=== PATIENT | female | born 1990 | race African-American/Black ===

== ENCOUNTER 2022-06-06 18:00 | Inpatient (IN) | payer OTHER ==
[2022-06-06] MEDS ORDERED: Promethazine HCl 25 MG/ML VIAL IM PRN (18:56)
[2022-06-06] MEDS ORDERED: Diphenoxylate HCl/Atropine Tablet PO PRN (18:56)
[2022-06-06] MEDS ORDERED: Lidocaine 1% (PF) 30 ML VIAL SC PRN (18:56)
[2022-06-06] MEDS ORDERED: NS w/ Oxytocin 30 units 500 ML IV SCH ×3 (18:56)
[2022-06-06] MEDS ORDERED: Tranexamic Acid 1,000 MG/10 ML VIAL IVP PRN (18:56)
[2022-06-06] MEDS ORDERED: hydrALAZINE 20 MG/ML VIAL SLOW IVP PRN (18:56)
[2022-06-06] MEDS ORDERED: Methylergonovine 0.2 MG/ML VIAL IM PRN (18:56)
[2022-06-06] MEDS ORDERED: Ondansetron PF 4 MG/2 ML Vial IVP PRN (18:56)
[2022-06-06] MEDS ORDERED: Misoprostol 200 MCG TAB PR PRN (18:56)
[2022-06-06] MEDS ORDERED: Carboprost 250 MCG/ML AMP IM PRN (18:56)
[2022-06-06] MEDS ORDERED: HYDROcodone/Acetaminophen 5/325 mg Tablet PO PRN (18:56)
[2022-06-06] MEDS ORDERED: Ibuprofen 800 MG TAB PO PRN (18:56)
[2022-06-06] MEDS ORDERED: Acetaminophen 500 MG TAB PO PRN (18:56)
[2022-06-06 20:15] VITALS: BMI 29.4
[2022-06-06] MEDS ORDERED: Penicillin G Potassium 5 MILL.UNITS in Sodium Chloride 0.9% 100 ML IVPB SCH (20:30)
[2022-06-06 20:53] LABS: Hemoglobin 9.1 g/dL (12.0-15.5); Mean Corpuscular HGB CONC 34.2 g/dL (32.0-36.0); Mean Corpuscular Hemoglobin 29.8 pg (27.0-33.0); Mean Corpuscular Volume 87.2 fl (81.6-98.3); Mean Platelet Volume 11.8 fl (7.4-10.4); Platelet Count 185 10x3/uL (150-450); Red Blood Cell (RBC) Count 3.05 10x6/uL (3.90-5.03); White Blood Cell (WBC) Count 6.3 10x3/uL (3.5-10.5)
[2022-06-06] MEDS: Misoprostol 100 MCG TAB PO SCH (21:06)
[2022-06-07 00:03] LABS: HBSAg Index 0.13 S/CO (0-0.99); Hep B Surf Ag - L&D Non-Reactive S/CO (NonReactive)
[2022-06-07 00:05] LABS: Syphilis Antibody Nonreactive (Nonreactive); Syphilis Antibody Index 0.05 S/CO (<1.00 Non-Reactive)
[2022-06-07] MEDS: Misoprostol 100 MCG TAB PO SCH ×2 (01:22→05:34)
[2022-06-07] MEDS: Fentanyl 100 MCG/2 ML VIAL SLOW IVP PRN ×2 (06:42→11:27)
[2022-06-08] MEDS: Misoprostol 100 MCG TAB VAG SCH (01:14)
[2022-06-08] MEDS: fentaNYL 50 mcg/mL 1 mL Vial SLOW IVP PRN ×3 (08:08→20:38)
[2022-06-08] MEDS: Lactated Ringer's 1,000 ML IV SCH (09:03)
[2022-06-08] MEDS ORDERED: Misoprostol 100 MCG TAB PO SCH ×2 (09:15→16:30)
[2022-06-08] MEDS ORDERED: Fentanyl 2 mcg/Bup 0.1% Cadd 100 ML ONE (21:24)
[2022-06-08] MEDS ORDERED: Lactated Ringer's 500 ML IV PRN (21:59)
[2022-06-08] MEDS ORDERED: ePHEDrine Sulfate 50 MG/10 ML VIAL SLOW IVP PRN (21:59)
[2022-06-08] MEDS ORDERED: Ondansetron PF 4 MG/2 ML Vial IVP PRN (21:59)
[2022-06-08] MEDS ORDERED: Moisturizing Cream (Eucerin) 113 GM JAR TOP PRN (21:59)
[2022-06-08] MEDS ORDERED: diphenhydrAMINE 50 MG/ML VIAL IVP PRN (21:59)
[2022-06-08] MEDS ORDERED: Naloxone HCl 0.4 mg/ml Vial IVP PRN ×2 (21:59)
[2022-06-08] MEDS ORDERED: Promethazine HCl 25 MG/ML VIAL IM PRN (21:59)
[2022-06-08] MEDS ORDERED: Acetaminophen 325 MG TAB PO PRN (21:59)
[2022-06-08] MEDS ORDERED: Communication Order-Pharmacy FS SCH (22:00)
[2022-06-08] MEDS ORDERED: Fentanyl 2 mcg/Bupivacaine 0.1% Cassette 100 ML EPIDURAL SCH (22:00)
[2022-06-09] MEDS ORDERED: Fentanyl 2 mcg/Bup 0.1% Cadd 100 ML ONE (04:15)
[2022-06-09] MEDS ORDERED: CEFAZOLIN 2 GM VIAL ONE (05:32)
[2022-06-09] MEDS ORDERED: Methylergonovine 0.2 MG/ML VIAL ONE (05:32)
[2022-06-09] MEDS ORDERED: Carboprost 250 MCG/ML AMP ONE (05:32)
[2022-06-09] MEDS ORDERED: Tranexamic Acid 1,000 MG/10 ML VIAL ONE (05:32)
[2022-06-09] MEDS ORDERED: Famotidine/PF 20 mg/2ml Vial SLOW IVP PRN (05:48)
[2022-06-09] MEDS ORDERED: Bicitra 30 ML UDCUP PO PRN (05:48)
[2022-06-09] MEDS ORDERED: Azithromycin 500 MG VIAL ONE (05:52)
[2022-06-09] MEDS ORDERED: CEFAZOLIN 2 GM in Sodium Chloride 0.9% 100 ML IVPB SCH (06:00)
[2022-06-09] MEDS ORDERED: Azithromycin 500 MG in Sodium Chloride 0.9% 250 ML 250 ML IVPB SCH (06:00)
[2022-06-09] MEDS ORDERED: diphenhydrAMINE 50 MG/ML VIAL IVP PRN (07:12)
[2022-06-09] MEDS ORDERED: Promethazine HCl 25 MG SUPP PR PRN ×2 (07:12→08:40)
[2022-06-09] MEDS ORDERED: Ondansetron PF 4 MG/2 ML Vial IVP PRN ×2 (07:12→08:40)
[2022-06-09] MEDS ORDERED: Naloxone HCl 0.4 mg/ml Vial IVP PRN ×4 (07:12→08:40)
[2022-06-09] MEDS ORDERED: Naloxone HCl 0.4 mg/ml Vial IV PRN ×2 (07:12→08:40)
[2022-06-09] MEDS ORDERED: Moisturizing Cream (Eucerin) 113 GM JAR TOP PRN ×2 (07:12→08:40)
[2022-06-09] MEDS ORDERED: Ketorolac Tromethamine 30 MG/ML VIAL IVP PRN ×2 (07:12→08:40)
[2022-06-09] MEDS ORDERED: Promethazine HCl 25 MG/ML VIAL IM PRN ×4 (07:12→11:00)
[2022-06-09] MEDS ORDERED: Ondansetron HCl/PF 4 MG/2 ML Vial IVP PRN ×2 (07:12→08:40)
[2022-06-09] MEDS ORDERED: Communication Order-Pharmacy FS SCH ×2 (07:15→08:45)
[2022-06-09] MEDS ORDERED: Fentanyl 100 MCG/2 ML VIAL SLOW IVP PRN (08:40)
[2022-06-09] MEDS ORDERED: Meperidine HCl/PF 25 MG/ML VIAL SLOW IVP PRN (08:40)
[2022-06-09] MEDS ORDERED: fentaNYL 50 mcg/mL 1 mL Vial SLOW IVP PRN (08:40)
[2022-06-09] MEDS ORDERED: Ketorolac Tromethamine 30 MG/ML VIAL IVP SCH (08:45)
[2022-06-09] MEDS ORDERED: fentaNYL 50 mcg/mL 1 mL Vial ONE (08:53)
[2022-06-09] MEDS ORDERED: Simethicone Chewable 80 MG TAB PO PRN (11:00)
[2022-06-09] MEDS ORDERED: Boostrix 0.5 ML (Tdap) VIAL (>/=7 yrs of age) IM ONE (11:00)
[2022-06-09] MEDS ORDERED: hydrALAZINE 20 MG/ML VIAL SLOW IVP PRN (11:00)
[2022-06-09] MEDS ORDERED: Bisacodyl 10 MG SUPP PR PRN (11:00)
[2022-06-09] MEDS ORDERED: Docusate 100 MG CAP PO SCH (11:15)
[2022-06-09] MEDS ORDERED: Ferrous Sulfate 325 MG TAB PO SCH (11:15)
[2022-06-09] MEDS ORDERED: Prenatal Vitamin 1 TAB PO SCH (11:15)
[2022-06-09] MEDS: Ketorolac Tromethamine 30 MG/ML VIAL IVP SCH ×2 (12:40→18:12)
[2022-06-09] MEDS: diphenhydrAMINE 50 MG/ML VIAL IVP PRN ×2 (15:54→22:03)
[2022-06-09] MEDS ORDERED: Bupivacaine/Epinephrine 0.25% 30 ML VIAL ONE (18:26)
[2022-06-09] MEDS ORDERED: Meperidine HCl/PF 25 MG/ML VIAL IM PRN (21:00)
[2022-06-09] MEDS: Ferrous Sulfate 325 MG TAB PO SCH (22:01)
[2022-06-09] MEDS: Docusate 100 MG CAP PO SCH (22:02)
[2022-06-10] MEDS: Ketorolac Tromethamine 30 MG/ML VIAL IVP SCH ×2 (00:21→06:11)
[2022-06-10 03:02] LABS: Hemoglobin 7.1 g/dL (12.0-15.5); Mean Corpuscular HGB CONC 33.8 g/dL (32.0-36.0); Mean Corpuscular Hemoglobin 29.7 pg (27.0-33.0); Mean Corpuscular Volume 87.9 fl (81.6-98.3); Mean Platelet Volume 11.3 fl (7.4-10.4); Platelet Count 142 10x3/uL (150-450); RBC Distribution Width 14.3 % (11.5-14.5); Red Blood Cell (RBC) Count 2.39 10x6/uL (3.90-5.03); White Blood Cell (WBC) Count 8.5 10x3/uL (3.5-10.5)
[2022-06-10] MEDS: diphenhydrAMINE 50 MG/ML VIAL IVP PRN (04:42)
[2022-06-10] MEDS: HYDROcodone/Acetaminophen 5/325 mg Tablet PO PRN ×5 (04:48→22:29)
[2022-06-10] MEDS: Misoprostol 100 MCG TAB VAG SCH (06:56)
[2022-06-10] MEDS: Misoprostol 100 MCG TAB PO SCH (06:56)
[2022-06-10] MEDS: Lactated Ringer's 1,000 ML IV SCH ×3 (06:57→07:20)
[2022-06-10] MEDS: Penicillin G 2.5 MILL.units 2.5 MILL.UNITS in Premix Bag 1 BAG IVPB SCH ×2 (07:17→07:18)
[2022-06-10] MEDS: Prenatal Vitamin 1 TAB PO SCH (09:02)
[2022-06-10] MEDS: Docusate 100 MG CAP PO SCH ×2 (09:02→21:12)
[2022-06-10] MEDS: Ferrous Sulfate 325 MG TAB PO SCH ×2 (09:02→21:12)
[2022-06-10] MEDS: Ibuprofen 800 MG TAB PO SCH ×2 (13:47→21:12)
[2022-06-11] MEDS: Ibuprofen 800 MG TAB PO SCH ×3 (05:22→22:05)
[2022-06-11] MEDS: HYDROcodone/Acetaminophen 5/325 mg Tablet PO PRN ×5 (05:22→23:43)
[2022-06-11] MEDS: Docusate 100 MG CAP PO SCH ×2 (08:13→22:04)
[2022-06-11] MEDS: Prenatal Vitamin 1 TAB PO SCH (08:13)
[2022-06-11] MEDS: Ferrous Sulfate 325 MG TAB PO SCH ×2 (08:13→22:04)
[2022-06-12] MEDS: Ibuprofen 800 MG TAB PO SCH ×2 (05:11→14:10)
[2022-06-12] MEDS: HYDROcodone/Acetaminophen 5/325 mg Tablet PO PRN ×3 (05:14→16:38)
[2022-06-12 07:49] VITALS: BP 139/84; TEMP 98.3
[2022-06-12] MEDS: Ferrous Sulfate 325 MG TAB PO SCH (08:37)
[2022-06-12] MEDS: Prenatal Vitamin 1 TAB PO SCH (08:37)
[2022-06-12] MEDS: Docusate 100 MG CAP PO SCH (08:38)
== END 2022-06-12 19:35 | disposition home or self-care (01) | DRG 788 ==
LOC: CSHLD 18:32 → CSHPP 06-09 10:05
PROVIDERS: ADMIT Family Medicine; ATTEND Family Medicine
PROC: 3E0P7VZ Introduction of Hormone into Female Reproductive, Via Natural or Artificial Opening (ICD-10-PCS; 2022-06-07)
PROC: 0U7C7ZZ Dilation of Cervix, Via Natural or Artificial Opening (ICD-10-PCS; 2022-06-08)
PROC: 3E033VJ Introduction of Other Hormone into Peripheral Vein, Percutaneous Approach (ICD-10-PCS; 2022-06-08)
PROC: 10D00Z1 Extraction of Products of Conception, Low, Open Approach (ICD-10-PCS; principal; 2022-06-09)
DX: O98.72 Human immunodeficiency virus [HIV] disease complicating childbirth (principal); Z3A.39 39 weeks gestation of pregnancy; Z37.0 Single live birth; Z21 Asymptomatic human immunodeficiency virus [HIV] infection status; Z79.899 Other long term (current) drug therapy
CPT/HCPCS: 36415; 51702; 85027; 86780; 86850; 86900; 86901; 87340; J1200; J1885; J2590; J3010; J7120

== ENCOUNTER 2024-02-11 22:46 | Day surgery (SDC) | payer MEDICAID ==
[2024-02-11 23:16] VITALS: BMI 27.6
[2024-02-11] MEDS: Lactated Ringer's 1,000 ML IV SCH (23:28)
[2024-02-11] MEDS ORDERED: hydrALAZINE 20 MG/ML VIAL SLOW IVP PRN (23:29)
[2024-02-12 00:58] LABS: Hematocrit 27.4 % (34.9-44.5); Hemoglobin 9.7 g/dL (12.0-15.5); Mean Corpuscular HGB CONC 35.4 g/dL (32.0-36.0); Mean Corpuscular Hemoglobin 32.2 pg (27.0-33.0); Mean Platelet Volume 11.6 fL (7.4-10.4); Platelet Count 179 10x3/uL (150-450); RBC Distribution Width 12.7 % (11.5-14.5); Red Blood Cell (RBC) Count 3.01 10x6/uL (3.90-5.03)
[2024-02-12] MEDS: Morphine 4 MG/ML VIAL SLOW IVP SCH (02:24)
[2024-02-12] MEDS: Lactated Ringer's 1,000 ML IV SCH (02:26)
== END 2024-02-12 03:39 | disposition home or self-care (01) ==
LOC: CSHLD/OP 22:46
PROVIDERS: ATTEND Family Medicine
DX: O9A.213 Injury, poisoning and certain other consequences of external causes complicating pregnancy, third trimester (principal); M54.9 Dorsalgia, unspecified; O47.03 False labor before 37 completed weeks of gestation, third trimester; O98.713 Human immunodeficiency virus [HIV] disease complicating pregnancy, third trimester; O09.43 Supervision of pregnancy with grand multiparity, third trimester; Z3A.32 32 weeks gestation of pregnancy; Z87.59 Personal history of other complications of pregnancy, childbirth and the puerperium; Z79.899 Other long term (current) drug therapy; V89.2XXA Person injured in unspecified motor-vehicle accident, traffic, initial encounter
CPT/HCPCS: 36415; 76815; 85027; 86850; 86900; 86901; 87480; 87510; 87660; 99283; J2272